=== PATIENT | female | born 1955 | race Caucasian/White ===

== ENCOUNTER 2020-09-08 10:35 | Day surgery (SDC) | payer MEDICARE, OTHER ==
[~2020-09-08] VITALS: Ht 160 cm; Wt 59.2 kg
[~2020-09-08 10:35] MED LIST: AMIT10 PO; Calcium Ascorb500 MG PO; LEVO-T75 MCG PO; MEMA10 PO; MULTIPLE VITAM1 EACH PO
== END 2020-09-08 13:06 | disposition home or self-care (01) ==
LOC: ORSCSDS 10:35
PROVIDERS: Podiatrist Foot & Ankle Surgery
PROC: 0QBP0ZZ Excision of Left Metatarsal, Open Approach (ICD-10-PCS; principal; 2020-09-08 12:00)
DX: M20.5X2 Other deformities of toe(s) (acquired), left foot (principal); E03.9 Hypothyroidism, unspecified; Z79.899 Other long term (current) drug therapy; G35 Multiple sclerosis
CPT/HCPCS: J0171; J1100; J2250; J2405; J2704; J3010; J3370; J7120

== ENCOUNTER → 2022-02-06 | Outpatient (CLI) | payer MEDICARE, OTHER ==
[2022-02-07 02:13] LABS: Adenovirus F 40/41 Not Detected (NOT DETECT); Astrovirus Not Detected (NOT DETECT); Campylobacter Sp Not Detected (NOT DETECT); Cryptosporidium Not Detected (NOT DETECT); Cyclospora Cayetanensis Not Detected (NOT DETECT); E. Coli O157 Not Detected (NOT DETECT); Entamoeba Histolytica Not Detected (NOT DETECT); Enteroaggregative E. coli-EAEC Not Detected (NOT DETECT); Enteropathogenic E. coli-EPEC Not Detected (NOT DETECT); Enterotoxigenic E. coli-ETEC Not Detected (NOT DETECT); Giardia Lamblia Not Detected (NOT DETECT); Norovirus GI/GII Not Detected (NOT DETECT); Plesiomonas Shigelloides Not Detected (NOT DETECT); Rotavirus A Not Detected (NOT DETECT); Salmonella Sp Not Detected (NOT DETECT); Sapovirus Not Detected (NOT DETECT); Shiga Toxin-prod E. coli-STEC Not Detected (NOT DETECT); Shigella/Enteroin E. coli-EIEC Not Detected (NOT DETECT); Vibrio Cholerae Not Detected (NOT DETECT); Vibrio Sp Not Detected (NOT DETECT); Yersinia Enterocolitica Not Detected (NOT DETECT)
== END ==
LOC: LAB SHORT 14:16 → LAB 14:16
PROVIDERS: Family Medicine
DX: R19.7 Diarrhea, unspecified (principal); R10.9 Unspecified abdominal pain
CPT/HCPCS: 87507; 89055

== ENCOUNTER 2023-03-11 10:32 | Day surgery (SDC) | payer MEDICARE, OTHER ==
[~2023-03-11] VITALS: Ht 160 cm; Wt 55.5 kg
[2023-03-11] MEDS ORDERED: OMEP20ER PO (11:15)
--- NOTE | 2023-03-11 12:33 | NUR ---
03/11/23 1233 Aye Rucker 0.05ML OF EPI 1MG/ML ADDED TO 10ML ROPIVICAINE 0.5% TO CREATE A LOCAL SOLUTION OF ROPIVICAINE 0.5% WITH EPI 1:200,000.
[2023-03-11 13:19] VITALS: BP 129/79
== END 2023-03-11 14:10 | disposition home or self-care (01) ==
LOC: ORSCSDS 10:32
PROVIDERS: Podiatrist Foot & Ankle Surgery
PROC: 0QBQ0ZZ Excision of Right Toe Phalanx, Open Approach (ICD-10-PCS; principal; 2023-03-11 12:00)
PROC: 0QSN04Z Reposition Right Metatarsal with Internal Fixation Device, Open Approach (ICD-10-PCS; principal; 2023-03-11 12:00)
PROC: 0QBN0ZZ Excision of Right Metatarsal, Open Approach (ICD-10-PCS; principal; 2023-03-11 12:00)
DX: M20.5X1 Other deformities of toe(s) (acquired), right foot (principal); M79.671 Pain in right foot; E03.9 Hypothyroidism, unspecified; G35 Multiple sclerosis; Z79.899 Other long term (current) drug therapy
CPT/HCPCS: J0171; J0690; J1100; J2001; J2250; J2370; J2405; J2704; J2795; J3010; J7120

== ENCOUNTER → 2023-05-17 | Outpatient (CLI) | payer MEDICARE, OTHER ==
[~2023-05-17] MED LIST changes: +OMEP20ER PO
== END | disposition home or self-care (01) ==
LOC: PLD 13:11 → LAB SHORT 13:11 → LAB 13:11
DX: C44.01 Basal cell carcinoma of skin of lip (principal)
CPT/HCPCS: 88305

== ENCOUNTER 2024-12-28 06:13 | Day surgery (SDC) | payer MEDICARE, OTHER ==
[~2024-12-28] VITALS: Ht 160 cm; Wt 57.4 kg
[2024-12-28] MEDS ORDERED: Lactated Ringer's 1,000 ML IV ONE ×3 (06:15→10:55)
[2024-12-28] MEDS ORDERED: CeFAZolin Sodium 2,000 MG VIAL ONE (06:42)
[2024-12-28] MEDS ORDERED: Bupivacaine 0.5% W/EPI 1:200000 SDV 30 ML Vial ONE (07:00)
[2024-12-28] MEDS ORDERED: Midazolam HCl 1MG / ML 2ML Vial ONE (07:14)
[2024-12-28] MEDS ORDERED: propofoL 20 ML IV ONE (07:22)
[2024-12-28] MEDS ORDERED: Rocuronium Bromide 10 MG/ML 5ML Injection IV ONE (07:22)
[2024-12-28] MEDS ORDERED: FentaNYL Citrate 50 MCG/ML 2 ML Injection ONE ×2 (07:22→08:59)
[2024-12-28] MEDS ORDERED: Dexamethasone Sod Phos 10 MG/ML 1ML VIAL ONE (07:45)
[2024-12-28] MEDS ORDERED: Ondansetron HCl 2 MG / ML 2ML Vial ONE (07:45)
[2024-12-28] MEDS ORDERED: Phenylephrine HCl 100 MCG/ML-NS 10MLSYR (1MG/10ML) ONE (07:49)
[2024-12-28] MEDS ORDERED: Sugammadex Sodium 200 MG/2ML SDV (100 MG/ML) ONE (08:19)
--- NOTE | 2024-12-28 09:30 | NUR ---
12/28/24 0930 NI VIRK RECEIVED REPORT FROM SARAH SCHULTE IN PACU/SDU. PT TRANSFER FROM PACU TO SDU. PT MEDICATED BY SARAH SCHULTE PRIOR TO HER LEAVING FOR BREAK. PT ON VITALS MONITOR. VSS ON ROOM AIR. PT REPORTING HIGH LEVEL OF PAIN ICE PACK TO LEFT HIP.
[2024-12-28] MEDS ORDERED: TraMADol HCl 50 MG Tab ONE (09:45)
[2024-12-28 09:57] VITALS: BP 107/66
== END 2024-12-28 10:55 | disposition home or self-care (01) ==
LOC: ORSCSDS 06:13
PROVIDERS: Orthopaedic Surgery
PROC: 0MBM0ZZ Excision of Left Hip Bursa and Ligament, Open Approach (ICD-10-PCS; principal; 2024-12-28 07:30)
PROC: 0LQK0ZZ Repair Left Hip Tendon, Open Approach (ICD-10-PCS; principal; 2024-12-28 07:30)
DX: M70.62 Trochanteric bursitis, left hip (principal); S39.013A Strain of muscle, fascia and tendon of pelvis, initial encounter; G35 Multiple sclerosis; E03.9 Hypothyroidism, unspecified; Z79.899 Other long term (current) drug therapy
CPT/HCPCS: A9270; C1713; J0690; J1100; J2250; J2371; J2405; J2704; J3010; J7120